=== PATIENT | male | born 1975 | race American Indian/Alaskan Native ===

== ENCOUNTER 2018-06-28 17:01 | Emergency (ER) | payer OTHER ==
--- NOTE | 2018-06-28 17:17 | Emergency Department Report ---
Blank Doc - Documentation Documentation: 43 y o male presents with right index swelling and pain x 3 dayas denies injury BP meds out for 3 months, non medicated. denies tatum/cp/abd pain/ was taking Lisiopril ACC to evalutae catapres 0.2
[2018-06-28] MEDS ORDERED: ULTRAM PO ONE (17:52)
[2018-06-28] MEDS ORDERED: XYLOCAINE 1% 20 mL INFILTRATI ONE (17:52)
[2018-06-28] MEDS ORDERED: CATAPRES PO ONE (17:55)
[2018-06-28] MEDS ORDERED: XYLOCAINE 1% MPF 5 mL ONE (17:57)
[2018-06-28] MEDS ORDERED: CATAPRES ONE (17:57)
[2018-06-28] MEDS ORDERED: XYLOCAINE 1% MPF 5 mL INFILTRATI ONE (18:03)
--- NOTE | 2018-06-28 18:21 | Emergency Department Report ---
Upper Extremity - [facility] Chief Complaint: Extremity Problem,Nontraumatic Stated Complaint: RT INDEX FINGER INJURY/PAIN Time Seen by Provider: 06/28/18 17:14 Upper Extremity: Left Index Finger (paronychia ) Occurred When: 3 Days Severity: moderate Symptoms: Yes Pain with Movement, Yes Swelling, Yes Bruising/Ecchymosis, No Deformity, No Limited Range of Movement, No Numbness, No Weakness, No Laceration or Abrasion Other History: paronychia left index finger no fever no drainage pain to touch ED Review of Systems ROS: Stated complaint: RT INDEX FINGER INJURY/PAIN Other details as noted in HPI Constitutional: denies: chills, fever Eyes: denies: eye pain, eye discharge, vision change ENT: denies: ear pain, throat pain Respiratory: denies: cough, shortness of breath, wheezing Cardiovascular: denies: chest pain, palpitations Endocrine: no symptoms reported Gastrointestinal: denies: abdominal pain, nausea, diarrhea Genitourinary: denies: urgency, dysuria Musculoskeletal: denies: back pain, joint swelling, arthralgia Skin: lesions (left index finger paronychia ) Neurological: denies: headache, weakness, paresthesias Psychiatric: denies: anxiety, depression Hematological/Lymphatic: as per HPI ED Past Medical Hx - Past Medical History Hx Hypertension: Yes - Social History Smoking Status: Never Smoker Substance Use Type: None - Medications Home Medications: Home Medications Medication Instructions Recorded Confirmed Last Taken Type Cephalexin [Keflex] 500 mg PO TID 10 Days #30 capsule 06/28/18 Unknown Rx Tramadol HCl [Ultram] 50 mg PO Q6H PRN #12 tablet 06/28/18 Unknown Rx Upper Extremity Exam - Exam General: Vital signs noted. No distress. Alert and acting appropriately. Head and Torso: No HEENT Abnormality, No Neck Tenderness, No Chest/Lungs Abnormality, No Abdominal Tenderness, No Back Tenderness Shoulder Exam: Yes Normal Range of Motion in Shoulder, No Shoulder Tenderness, No Clavicle Tenderness, No Shoulder Deformity, No AC Joint Tenderness Arm Exam: No Arm/Humerus Tenderness, No Arm Deformity Elbow: No Elbow Tenderness, No Normal Range of Motion in Elbow, No Elbow Deformity Forearm: No Forearm Tenderness, No Forearm Deformity, No Pain with Pronation, No Pain with Supination Wrist: Yes Normal ROM in Wrist, No Wrist Tenderness, No Wrist Deformity, No Snuffbox Tenderness, No Pain with Axial Thumb Compression Hand: Yes Digit Tenderness (left index finger paronychia ), Yes Normal ROM in Digit(s) CMS Exam: Yes Normal Distal Pulses, Yes Normal Capillary Refill, Yes Normal Distal Sensation, No Broken Skin ED Course Vital Signs 06/28/18 06/28/18 17:15 18:04 Temperature 97.6 F Pulse Rate 80 Respiratory 18 18 Rate Blood Pressure 235/145 235/145 O2 Sat by Pulse 98 Oximetry - I & D Left Dorsal Finger Type of Procedure: Simple Site: left index finger paronychia Blade Size: 11 I & D Procedure: betadine prep, sterile drapes applied, sterile dressing applied Progress: lert paronycia index finger wound cleaned with betadine solution anesthesia with 1 % lidocaine via digital block incision with 11 blade x 1 moderate white purulent drainage wound irrigated with 10 cc sterile saline. all bleeding is controlled sterile dressing is controlled pt given wound care instructions pt verbalized agreement and understanding with discharge plan. Critical care attestation.: If time is entered above; I have spent that time in minutes in the direct care of this critically ill patient, excluding procedure time. ED Disposition Clinical Impression: Paronychia of finger of left hand Disposition: DC-01 TO HOME OR SELFCARE Is pt being admited?: No Does the pt Need Aspirin: No Condition: Stable Instructions: Paronychia (ED) Prescriptions: Cephalexin [Keflex] 500 mg PO TID 10 Days #30 capsule Tramadol HCl [Ultram] 50 mg PO Q6H PRN #12 tablet PRN Reason: pain Referrals: PAULA BURNHAM MD [Primary Care Provider] - 3-5 Days Forms: Work/School Release Form(ED) Time of Disposition: 18:24
[2018-06-28 18:42] VITALS: BP 223/142
== END 2018-06-28 18:37 | disposition home or self-care (01) ==
LOC: ED 17:01
DX: L03.012 Cellulitis of left finger (principal); I10 Essential (primary) hypertension